=== PATIENT | male | born 1950 | race Hispanic/Latino ===

== ENCOUNTER 2024-04-03 16:11 | Emergency (ER) | payer SELFPAY ==
[~2024-04-03 16:11] MED LIST: Iopamidol 300 61% 100 ML VIAL FS ONE
[2024-04-03 19:39] LABS: #Basophils 0.06 10x3/uL (0.0-0.2); #Eosinophils 0.19 10x3/uL (0.0-0.5); #Monocytes 0.82 10x3/uL (0.0-1.1); #Neutrophils 4.23 10x3/uL (1.5-8.4); %Basophils 0.8 % (0.0-2.0); %Eosinophils 2.4 % (0.0-6.0); %Lymphocytes 32.2 % (18.0-47.0); %Monocytes 10.4 % (0.0-10.0); %Neutrophils 53.9 % (40.0-75.0); Hematocrit 36.7 % (38.8-50.0); Hemoglobin 12.5 g/dL (13.5-17.5); Mean Corpuscular HGB CONC 34.1 g/dL (32.0-36.0); Mean Corpuscular Hemoglobin 32.9 pg (27.0-33.0); Mean Corpuscular Volume 96.6 fL (81.2-95.1); Mean Platelet Volume 11.1 fL (7.4-10.4); Platelet Count 201 10x3/uL (150-450); RBC Distribution Width 13.2 % (11.5-14.5); White Blood Cell (WBC) Count 7.85 10x3/uL (3.5-10.5)
[2024-04-03 19:55] LABS: ALT (SGPT) 23 U/L (Less than 45); AST (SGOT) 29 U/L (11-34); Alkaline Phosphatase 108 U/L (40-110); Anion Gap 12 mmol/L (10-20); BUN (Urea Nitrogen) 17 mg/dL (8.4-25.7); Bilirubin, Total 0.6 mg/dL (0.3-1.2); Calc. Creatinine Clearance 0 mL/min (70-130); Calcium 9.3 mg/dL (7.8-10.44); Carbon Dioxide 22 mmol/L (23-31); Chloride 102 mmol/L (98-107); Estimated GFR 102; Globulin 4.3 g/dL (2.4-3.5); Glucose 89 mg/dL (83-110); Potassium 3.6 mmol/L (3.5-5.1); Protein, Total 8.3 g/dL (5.8-8.1); Sodium 132 mmol/L (136-145)
== END 2024-04-03 21:56 | disposition home or self-care (01) ==
LOC: CSHERS 16:11
DX: K02.9 Dental caries, unspecified (principal); R59.1 Generalized enlarged lymph nodes; I10 Essential (primary) hypertension
CPT/HCPCS: 36415; 70491; 80053; 85025; Q9967